=== PATIENT | male | born 1950 | race Caucasian/White ===

== ENCOUNTER 2018-08-21 08:20 | Day surgery (SDC) | payer MEDICARE ==
[2018-08-21] VITALS (20 sets, daily range): BP systolic 119–140; BP diastolic 78–89; PULSE 70–81; RESP 13–23; Ht 172.7 cm; Wt 103.7 kg
[~2018-08-21] VITALS: Ht 172.7 cm; Wt 103.7 kg
[2018-08-21] MEDS ORDERED: COMBIG5 BOTH EYES (09:23)
[2018-08-21] MEDS ORDERED: BUSP10TA2 PO (09:23)
[2018-08-21] MEDS ORDERED: LIPA1CAP6 PO (09:24)
[2018-08-21] MEDS ORDERED: ESOM40CA PO (09:25)
[2018-08-21] MEDS ORDERED: ETAN50PE SQ (09:25)
[2018-08-21] MEDS ORDERED: LOSA25TA12 PO (09:26)
[2018-08-21] MEDS ORDERED: DAPA5TAB PO (09:26)
[2018-08-21] MEDS ORDERED: METO-336 PO (09:27)
[2018-08-21] MEDS ORDERED: METF100010 PO (09:27)
[2018-08-21] MEDS ORDERED: CYCL1DRO BOTH EYES (09:28)
[2018-08-21] MEDS ORDERED: NITR0.4T39 SL (09:28)
[2018-08-21] MEDS ORDERED: MILN50TA PO (09:29)
[2018-08-21] MEDS ORDERED: TAMS-14 PO (09:29)
[2018-08-21] MEDS ORDERED: RSV10T PO (09:29)
[2018-08-21] MEDS ORDERED: LIRA0.6P2 SQ (09:30)
[2018-08-21] MEDS ORDERED: DIAZEPAM 5 MG TAB PO SCH (09:39)
[2018-08-21] MEDS ORDERED: FAMOTIDINE 20 MG TAB PO SCH (09:40)
[2018-08-21] MEDS ORDERED: DIPHENHYDRAMINE 50 MG CAP PO SCH (09:40)
[2018-08-21] MEDS ORDERED: SOD CHLORIDE 0.45% 1,000 ML IV SCH (10:00)
[2018-08-21] MEDS ORDERED: LIDOCAINE 1% (MDV) 20 ML INJ ONE (11:09)
[2018-08-21] MEDS ORDERED: IODIXANOL LOCM 100 ML BTL ONE (11:09)
[2018-08-21] MEDS ORDERED: VERAPAMIL 5 MG INJ ONE (11:10)
[2018-08-21] MEDS ORDERED: HEPARIN 1000 UNITS/ML 10 ML INJ ONE (11:10)
[2018-08-21] MEDS ORDERED: MIDAZOLAM 1 MG/ML 2 ML INJ ONE (11:10)
[2018-08-21] MEDS ORDERED: NITROGLYCERIN (IC) 100 MCG/ML INJ ONE (11:10)
[2018-08-21] MEDS ORDERED: FENTAnyl 50 MCG/ML VIAL ONE (11:10)
[2018-08-21] MEDS ORDERED: SOD CHLORIDE 0.9% 1,000 ML IV SCH (11:57)
--- NOTE | 2018-08-21 11:57 | SIPON ---
Date/Time of Note Date/Time of Note DATE: 08/21/18 TIME: 11:56 Operative Report Preoperative Diagnosis 1.chest pain 2.abnl mpi Postoperative Diagnosis 1.non-obstructive cad Operation/Procedure Performed 1.[facility] Surgeon see signature line pastrycook's assistant 1.[place] Anesthesia: moderate sedation Estimated blood loss: minimal Transfusion Required none Specimen none Grafts/Implants none Complications none AIDAN RUSSELL August 21, 2018 11:57
[2018-08-21] MEDS ORDERED: AL HYDROX/MG HYDROX/SIMETH 30 ML CUP PO PRN (12:00)
[2018-08-21] MEDS ORDERED: ACETAMINOPHEN 325 MG TAB PO PRN (12:00)
[2018-08-21] MEDS ORDERED: ONDANSETRON 4 MG INJ IV PRN (12:00)
--- NOTE | 2018-08-21 16:23 | CARRPT ---
DATE OF PROCEDURE: 08/21/2018 TYPE OF PROCEDURES: 1. Left heart catheterization. 2. Coronary angiography. 3. Left ventriculogram. 4. Moderate conscious sedation. ATTENDING PHYSICIAN: Aidan Alva MD REFERRING PHYSICIAN: Reza Flores MD INDICATION: Chest pain refractory to medical therapy, positive stress test findings for inferior isc hemia. TYPE OF ANESTHESIA: Conscious and local. BRIEF HISTORY: Mr. Prajapati is a 68-year-old male with history of hypertension, dyslipidemia who ini tially presented with complaints of substernal chest pain. The patient was placed on ascending medic al therapy, but continued to have chest pain, now has been brought to cardiac phlebotomy lab assistant in order to as sess the possibility of significant obstructive coronary artery disease lending to symptoms of chest pain and subsequent positive stress test findings. DESCRIPTION OF PROCEDURE: After informed consent was obtained, the patient was brought to the [facility] cardiac catheterization lab where his right and left groins were prepped in a sterile fashion. A 2% lidocaine was infiltrated to the right radial area in order to achieve adequat e anesthesia. Using modified Seldinger technique, the patient's radial artery was cannulated and a 6 -Mauritian sheath was placed. A 6-Mauritian JL3.5 catheter was used to cannulate the left main coronary os tium. With contrast injection, multiple views of the left coronary system were obtained. JL3.5 was removed over a guidewire and a JR4 was used to cannulate the right coronary arterial ostium. With co ntrast injection, multiple views of the right coronary system were obtained. JR4 was removed over a guidewire and a 6-Mauritian pigtail was passed up the aorta and used to cross the LV and placed in LV. LVEDP was measured. A 20 mL of contrast were injected opacifying the left ventricle and pulled back across the aortic valve to assess for significant gradient, which there was not and removed. Subsequ ently at this time, this completed the procedure. The patient's sheath was removed. TR band was sorin lied. There were no noted complications. FINDINGS: Coronary angiography: Left main is 4.5 mm, no significant focal stenoses. Circumflex pro ximally is a 3.5 mm vessel and has mid luminal irregularities of 10% to 20%. The circumflex continua tion AV groove is free of focal significant stenoses and its mid branching obtuse marginal is a 2.5 m m vessel with an ostial 20% stenosis. The LAD proximally is a 3.5 mm vessel and in its midportion minaya s a focal stenosis approximately 30% to 40% and then goes around the apex there is another focal sten osis about 30% to 40%. The proximal branching diagonal is 2 mm with mid body 30% stenosis. The righ t coronary artery proximally is a 3.5 mm vessel with luminal irregularities up to 20% in its proximal portion. In the mid portion, there is a 20% to 30% stenosis. Right coronary artery is dominant ves denae and therefore gives off 2 mm PDA and 3 mm posterolateral branch that covers significant territory . Left ventriculogram: The left ventricular ejection fraction of 60% to 65%. Left end diastolic press ure of 18 pre-LV gram, 21 post-LV gram. No significant aortic stenosis by gradient. A 1+ mitral reg urgitation. TOTAL FLUOROSCOPY TIME: 4.2 minutes. TOTAL CONTRAST: 75 mL. IMPRESSION: 1. Mild to moderate nonobstructive coronary artery disease. 2. Preserved left ventricular systolic function. 3. Mildly elevated left heart filling pressures. 4. A 1+ mitral regurgitation. 5. No significant aortic stenosis by gradient. RECOMMENDATIONS: In light of procedure findings at this time, we would: 1. Maximize medical management. 2. Aggressive risk factor reduction. 3. The patient will be readmitted to same day surgery center for post-cath observation and continued management of symptoms with probable discharge later this afternoon. Dictated By: AIDAN LOUIS/UMAIR Conf#: [id number] DID#: [id number]
== END 2018-08-21 15:20 | disposition home or self-care (01) ==
LOC: CCL 08:20 → SDS 08:20 → CCL 15:20
PROVIDERS: ATTEND Internal Medicine
DX: I25.10 Atherosclerotic heart disease of native coronary artery without angina pectoris (principal); I10 Essential (primary) hypertension; E78.5 Hyperlipidemia, unspecified; I34.0 Nonrheumatic mitral (valve) insufficiency
CPT/HCPCS: 71045; 80048; 80061; 82962; 85025; 85610; 85730; 93005; 93458; C1887; J1644; J2250; J3010; Q9967